=== PATIENT | male | born 1975 | race Caucasian/White ===

== ENCOUNTER 2021-01-01 09:47 | Outpatient (CLI) | payer OTHER, SELFPAY ==
--- NOTE | 2021-01-01 14:30 | DI.RAD_ITS ---
EXAM: XR CHEST 2V PA LATERAL CLINICAL HISTORY: COUGH R05 HX SMOKER [id number]. TECHNIQUE: 2D digital imaging was performed. COMPARISON: No exams were available for comparison FINDINGS: Heart size is normal. The mediastinum is not widened. Lungs are clear. No infiltrates nor pleural effusions. IMPRESSION: No acute pulmonary findings. DATA REPOSITORY: RADIATION DOSE DELIVERED:
== END 2021-01-01 10:07 ==
PROVIDERS: PCP Physician Assistant Medical; Visit Provider Physician Assistant Medical
DX: R05 Cough (principal); Z87.891 Personal history of nicotine dependence
CPT/HCPCS: 71046

== ENCOUNTER 2022-05-27 17:53 | Outpatient (CLI) | payer OTHER, SELFPAY ==
--- NOTE | 2022-05-27 18:00 | DI.RAD_ITS ---
Exam(s) XR CHEST 2V PA LATERAL EXAM: XR CHEST 2V PA LATERAL CLINICAL HISTORY: Rib Pain. TECHNIQUE: 2D digital imaging was performed. COMPARISON: CR XR CHEST 2V PA LATERAL from 01/01/2021 FINDINGS: 2 views: Heart size is normal. The mediastinum is not widened. Lungs are clear. No infiltrates nor pleural effusions. IMPRESSION: No acute pulmonary findings. DATA REPOSITORY: RADIATION DOSE DELIVERED:
--- NOTE | 2022-05-27 18:00 | DI.RAD_ITS ---
Exam(s) XR RIBS BI ONLY EXAM: XR RIBS BI ONLY CLINICAL HISTORY: Rib Pain TECHNIQUE: 2D digital imaging was performed. COMPARISON: CR,XR XR CHEST 2V PA LATERAL from 05/27/2022 FINDINGS: RIBS 3 VIEWS-BILATERAL There are no acute rib fractures evident. No lytic rib lesions identified. No pneumothorax. No lung contusion. IMPRESSION: 1. No rib fractures evident. Also no obvious rib lesions. 2. No abnormal lung findings. DATA REPOSITORY: RADIATION DOSE DELIVERED:
--- NOTE | 2022-05-27 19:31 | DI.VRAD_ITS ---
PROCEDURE INFORMATION: Exam: XR Chest Exam date and time: 05/27/2022 6:43 PM Age: 46 years old Clinical indication: Other: Rib, pain TECHNIQUE: Imaging protocol: Radiologic exam of the chest. Views: 2 views. COMPARISON: CR XR CHEST 2V PA LATERAL 01/01/2021 2:32 PM FINDINGS: Lungs: Unremarkable. No consolidation. Pleural spaces: Unremarkable. No pleural effusion. No pneumothorax. Heart/Mediastinum: Unremarkable. No cardiomegaly. Bones/joints: Unremarkable. IMPRESSION: No evidence for acute abnormality in the chest. Dictated and Authenticated by: Estella Cannon MD. Ordering:CLARISSA Whittington MD
--- NOTE | 2022-05-27 19:34 | DI.VRAD_ITS ---
PROCEDURE INFORMATION: Exam: XR Ribs Exam date and time: 05/27/2022 6:46 PM Age: 46 years old Clinical indication: Other: Rib pain TECHNIQUE: Imaging protocol: Radiologic exam of the of the ribs. Views: 3 views. Bilateral ribs. COMPARISON: CR XR CHEST 2V PA LATERAL 05/27/2022 6:43 PM FINDINGS: Bones/joints: Normal. Soft tissues: Normal. Other findings: There appear to be 2 radiopaque anterior markers present. IMPRESSION: No evidence for fracture or acute abnormality. Dictated and Authenticated by: Estella Cannon MD. Ordering:CLARISSA Whittington MD
== END 2022-05-27 18:13 ==
LOC: LBN 17:58 → DI 17:59
PROVIDERS: PCP Physician Assistant Medical; Visit Provider Physician Assistant Medical
DX: R07.81 Pleurodynia (principal)
CPT/HCPCS: 71046; 71110

== ENCOUNTER 2024-11-07 22:10 | Outpatient (REF) | payer OTHER, SELFPAY ==
[2024-11-07 22:01] LABS: ALT 35 U/L (16-63); AST 27 U/L (15-37); Albumin 4.1 g/dL (3.4-5.0); Alkaline Phosphatase 78 U/L (46-116); Anion Gap 10.2 mmol/L (3-11); BUN 17 mg/dL (7-18); CO2 24.8 mmol/L (21.0-32.0); CREATININE 1.1 mg/dL (0.70-1.30); Calcium 9.8 mg/dL (8.5-10.1); Calculated LDL 116 mg/dL (<100); Chloride 102 mmol/L (98-107); Cholesterol 203 mg/dL (<200); Estimated GFR 82.81 (mL/min/1.73m2); Glucose 101 mg/dL (74-106); HDL Cholesterol 63 mg/dL (40-60); Sodium 137 mmol/L (136-145); Triglyceride 123 mg/dL (<150)
--- OUTSIDE RECORDS SUMMARY | 2024-11-07 22:11 | XMS_ITS | Encounter Summary ---
Author Organization [facility] Address [address] [place] [address] Care Team Providers Care Production Assembler Name Role Phone None, Provider Primary Care Provider Unavailabl e Reason for Visit * Reason Onset Date Comments Billing Question 12/20/2023 Encounter Details Date Type Department Care Team (Late st Contact Info) Description 12/20/2023 Telephone [facility] Pediatric Genetics - [facility] [address] [place], [place] [phone] Carleen Arroyo, MS [address] [place], [place] [phone] Billing Question Social History Tobacco Use Types Packs/Day Years Used Date Smoking Tobacco: Never Assessed Sex and Gender Information Value Date Recorded Sex Assigned at Not on file Legal Sex Male 13:05 EDT Gender Identity Not on file Sexual Orientation Not on file documented as of this encounter Miscellaneous Notes * Telephone Encounter - Chivo Adler - 12/20/2023 0829 EDT Calling with concerns regarding billing of the visit on 11.14.2023, they weren't expecting to be billed for $648.00. He would like a call back to discuss. I called and left a VM for them to call the billing office to review, and I would have you follow up with them when you return from vacation. CG documented in this encounter Plan of Treatment Not on file documented as of this encounter Visit Diagnoses Not on filedocumented in this encounter Care Teams Production Assembler Relationship Specialty Start Date End Date None, Provider PCP - General 11/14/23 documented as of this encounter
--- OUTSIDE RECORDS SUMMARY | 2024-11-07 22:11 | XMS_ITS | Encounter Summary ---
Author Organization [facility] Address [address] [place] [address] Care Team Providers Care Special Effects Artist Name Role Phone Unknown, Provider Primary Care Provider Unava ilable Reason for Visit * Reason Onset Date Comments Appointment Related 06/13/2015 Encounter Details Date Type Department Care Team (Late st Contact Info) Description 06/13/[address] [phone] Physical, Therapy Appointment Related Social History Tobacco Use Types Packs/Day Years Used Date Smoking Tobacco: Never Assessed Sex and Gender Information Value Date Recorded Sex Assigned at Not on file Legal Sex Male 13:05 EDT Gender Identity Not on file Sexual Orientation Not on file documented as of this encounter Miscellaneous Notes * Telephone Encounter - Nicole Beltran - 06/13/[address] [address] Telephone Intake Information for Scheduling NEW Patients for Therapy Script/referral: NONE NEEDED Date Scheduled: 06/13/15 Referring Provider: NONE NEEDED Diagnosis: BACK PAIN Primary Insurance: MEDICAID Visit limit: 30 PER YEAR - PT/OT/SPEECH COMBINED If Medicaid: Have you been seen in therapy since October first of this year? No Notes/other: NEW TO [facility] Nicole Beltran 06/13/2015 Label: Isma Ortiz : 1975 documented in this encounter Plan of Treatment Not on file documented as of this encounter Visit Diagnoses Not on filedocumented in this encounter Care Teams Special Effects Artist Relationship Specialty Start Date End Date Unknown, Provider, PCP - General 06/12/15 11/13/23 documented as of this encounter
--- OUTSIDE RECORDS SUMMARY | 2024-11-07 22:11 | XMS_ITS | Encounter Summary ---
Author Organization [facility] Address [address] [place] [address] Care Team Providers Care Roller Inspector And Mender Name Role Phone None, Provider Primary Care Provider Unavailabl e Reason for Visit * Reason Onset Date Comments Follow-up 12/15/2023 Encounter Details Date Type Department Care Team (Late st Contact Info) Description 12/15/2023 Telephone [facility] Pediatric Genetics - Main [place] [address] [place], [place] [phone] Carleen Arroyo MS [address] [place], [place] [phone] Follow-up Social History Tobacco Use Types Packs/Day Years Used Date Smoking Tobacco: Never Assessed Sex and Gender Information Value Date Recorded Sex Assigned at Not on file Legal Sex Male 13:05 EDT Gender Identity Not on file Sexual Orientation Not on file documented as of this encounter Miscellaneous Notes * Telephone Encounter - Carleen Arroyo MS - 12/15/2023 0818 EDT I left a message for Isma that his T genetic testing was denied by his insurance. There is the option of doing a patient pay $250 genetic testing through [employer] if he is interested. We also do need the genetic testing consent to proceed. documented in this encounter Plan of Treatment Not on file documented as of this encounter Visit Diagnoses Not on filedocumented in this encounter Care Teams Roller Inspector And Mender Relationship Specialty Start Date End Date None, Provider PCP - General 11/14/23 documented as of this encounter
--- OUTSIDE RECORDS SUMMARY | 2024-11-07 22:11 | XMS_ITS | Encounter Summary ---
Author Organization [facility] Address [address] [place] [address] Care Team Providers Care Ep Technologist Name Role Phone None, Provider Primary Care Provider Unavailabl e Reason for Visit * Reason Onset Date Comments Follow-up 12/28/2023 Encounter Details Date Type Department Care Team (Late st Contact Info) Description 12/28/2023 Telephone [facility] Pediatric Genetics - Main [place] [address] [place], [place] [phone] Carleen Arroyo MS [address] [place] [address] Follow-up Social History Tobacco Use Types Packs/Day Years Used Date Smoking Tobacco: Never Assessed Sex and Gender Information Value Date Recorded Sex Assigned at Not on file Legal Sex Male 13:05 EDT Gender Identity Not on file Sexual Orientation Not on file documented as of this encounter Miscellaneous Notes * Telephone Encounter - Carleen Arroyo MS - 12/28/2023 7907 EDT I spoke with Isma regarding the bill he received from the genetic counseling appointment. I encouraged him to reach out to the [facility] billing department to discuss it further and or his insurance company. He was not sure if he was going to proceed with the patient pay option of $250 for the genetic testing he will let me know. I have sent him a genetic testing consent again in the mail. documented in this encounter Plan of Treatment Not on file documented as of this encounter Visit Diagnoses Not on filedocumented in this encounter Care Teams Ep Technologist Relationship Specialty Start Date End Date None, Provider PCP - General 11/14/23 documented as of this encounter
--- OUTSIDE RECORDS SUMMARY | 2024-11-07 22:11 | XMS_ITS | Encounter Summary ---
Author Organization [facility] Address [address] [place] [address] Care Team Providers Care Net Repairer Name Role Phone None, Provider Primary Care Provider Unavailabl e Reason for Visit * Reason Onset Date Comments Results 05/28/2024 Encounter Details Date Type Department Care Team (Late st Contact Info) Description 05/28/2024 Telephone [facility] Pediatric Genetics - [facility] [address] [place], [place] [phone] Carleen Arroyo MS [address] [place] [address] Results Social History Tobacco Use Types Packs/Day Years Used Date Smoking Tobacco: Never Assessed Sex and Gender Information Value Date Recorded Sex Assigned at Not on file Legal Sex Male 13:05 EDT Gender Identity Not on file Sexual Orientation Not on file documented as of this encounter Miscellaneous Notes * Telephone Encounter - Carleen Arroyo MS - 05/28/2024 1442 EDT I spoke to Isma's partner Katarzyna who was concerned as her son had recently started to have nosebleeds. I explained that the patient pay option of $250 through [employer] was no longer offered but I would call a different lab to see whether patient pay option is and get back to her [phone] Katarzyna documented in this encounter Plan of Treatment Not on file documented as of this encounter Visit Diagnoses Not on filedocumented in this encounter Care Teams Net Repairer Relationship Specialty Start Date End Date None, Provider PCP - General 11/14/23 documented as of this encounter
--- OUTSIDE RECORDS SUMMARY | 2024-11-07 22:11 | XMS_ITS | Encounter Summary ---
Author Organization [facility] Address [address] [place] [address] Care Team Providers Care Uc Architect Name Role Phone None, Provider Primary Care Provider Unavailabl e Reason for Referral * Prior Authorization (Routine/Next Available) - Closed Specialty Diagnoses / Procedures Referred By Joaquin yi Referred To Contact Diagnoses Cerebral hemorrhage, nontraumatic ([facility]) Procedures CHG MOLECULAR PATHOLOGY PROCEDURE LEVEL 6 CHG UNLISTED MOLECULAR PATHOLOGY PROCEDURE Arianna Vargas MD Phone: tel: fax: [facility] Pediatric Genetics - [facility] [address] [place] [address] Phone: tel: fax: Referral ID Status Reason Start Date Expiration Date V isits Requested Visits Authorized [id number] Closed Specialty Services Required 11/14/2023 1 1 Question Answer Reason for Request: HHT panel Comments The purpose of this request is to inform precertification staff that the requested service needs to be reviewed for prior-authorization. HHT panel [facility] [id number] Reason for Visit * Reason Comments New Patient Visit * Consult (Routine) - Authorization Not Required Specialty Diagnoses / Procedures Referred By Joaquin yi Referred To Contact Pediatric Genetics Diagnoses AVM (arteriovenous malformation) HHT (hereditary hemorrhagic telangiectasia) ([facility]) Carleen Arroyo, MS [address] [place] [address] Phone: tel: fax: [facility] Clinical Genetics - [place] [address] Phone: tel: fax: Referral ID Status Reason Start Date Expiration Date Visits Requested Visits Authorized [id number] Authorization Not Required 1 1 Encounter Details Date Type Department Care Team (Late st Contact Info) Description 11/14/2023 8:00 EST Telemedicine [facility] Clinical Genetics - [address] [phone] Carleen Arroyo, MS [address] [place], [place] [phone] Cerebral hemorrhage, nontraumatic (HCC-CMS) (Primary Dx); Encounter for nonprocreative genetic counseling and testing Social History Tobacco Use Types Packs/Day Years Used Date Smoking Tobacco: Never Assessed Sex and Gender Information Value Date Recorded Sex Assigned at Not on file Legal Sex Male 13:05 EDT Gender Identity Not on file Sexual Orientation Not on file documented as of this encounter Progress Notes * Carleen Arroyo MS - 11/14/2023 0800 EST [facility] CLINICAL GENETICS PROGRAM TELEMEDICINE VIDEO VISIT ENCOUNTER Encounter Date: 11/14/2023 Name: Isma Ortiz : 1975 PCP: Provider None Isma Ortiz is a 47 y.o. male who is seen for a Genetics Telemedicine Video Visit Encounter for genetic counseling and discussion of genetic testing for Hereditary Hemorrhagic Telangiectasia TELEMEDICINE VIDEO VISIT DOCUMENTATION Today's visit was provided through telemedicine video conferencing: I have reviewed the appropriateness of using video technology with the patient with regards to today's visit. The location of the patient : Home Patient Visit Location State: [place] The location of the provider: Office Provider Visit Location State: [place] The following people and their roles were present for today's visit: None Appointment Provider: Carleen Arroyo MS The concept of ???Telemedicine?? has been described to the patient or guardian.? Patient/guardian has been informed of the anticipated benefits and possible risks.? Patient/guardian understands the information provided regarding telemedicine, has had the opportunity to ask questions about this information, and all questions have been answered to patient???s satisfaction. Patient/guardian consents for the use of telemedicine in his/her medical care and authorizes the transmission of any relevant medical information to providers and their staff involved in patient???s medical or mental health care. FAMILY HISTORY: A detailed three-generation pedigree was obtained as part of this visit. Isma has a healthy 2-1/2-year-old son Blaise. He has a healthy sister and 2 healthy nephews. His mother is alive and well and has 9 healthy siblings. Her mother had a cerebral hemorrhage in her 70s. His father is alive and well as are his siblings. He is of [place] ethnicity. There is noknown consanguinity in the family. The rest of the family history is unremarkable. MEDICAL HISTORY: Isma had a cerebral hemorrhage when he was 8 years of age. It was possibly a arteriovenous malformations (AVM). He does not have a history of recurrent nosebleeds or telangiectasias. He is otherwisehealthy. SUMMARY OF DISCUSSION: Isma Ortiz is a 47 y.o. male with a history of a cerebral hemorrhage and possibly an AVM. We briefly reviewed that Hereditary hemorrhagic telangiectasia (HHT) is a disorder that results in the development of multiple abnormalities in the blood vessels. In hereditary hemorrhagic telangiectasia, some arterial vessels flow directly into veins rather than into the capillaries. These abnormalities are called arteriovenous malformations. When they occur in vessels near the surface of the skin, where they are visible as red markings, they are known as telangiectases (the singular is telangiectasia). In the circulatory system, blood carrying oxygen from the lungs is normally pumped by the heart into the arteries at high pressure. The pressure allows the blood to make its way through the arteries to the smaller vessels (arterioles and capillaries) that supply oxygen to the body's tissues. By thetime blood reaches the capillaries, the pressure is much lower. The blood then proceeds from the capillaries into veins, through which it eventually returns to the heart. Without the normal buffer of the capillaries, the blood moves from the arteries at high pressure into the thinner walled, less elastic veins. The extra pressure tends to strain and enlarge these blood vessels, and may result in compression or irritation of adjacent tissues and frequent episodes of severe bleeding (hemorrhage). Nosebleeds are very common in people with hereditary hemorrhagic telangiectasia, and more serious problems may arise from hemorrhages in the brain, liver, lungs, or otherorgans. There are several forms of hereditary hemorrhagic telangiectasia, distinguished mainly by their genetic cause but with some differences in patterns of signs and symptoms. People with type 1 tend to develop symptoms earlier than those with type 2, and are more likely to have blood vessel malformations in the lungs and brain. Type 2 and type 3 may be associated with a higher risk of liver involvement. Women are more likely than men to develop blood vessel malformations in the lungs with type 1, and are also at higher risk of liver involvement with both type 1 and type 2. Individuals with any form of hereditary hemorrhagic telangiectasia, however, can have any of these problems. As Isma was aware HHT is inherited in an autosomal dominant pattern. Each child of an individual with this condition has a 50% chance of having the condition as well. We discussed the availability of the [facility] Hereditary Hemorrhagic Telangiectasia (HHT) panel. Isma was interested in this genetic testing we have placed a prior authorization with his insurance company. If it is approved we will send him an informed consent to review, sign, and return. He would be sent a buccal kit. We would contact him with results. Isma was also going to look into his medical history to see if he can gather any additional information to share. Lastly, we discussed that the laboratory may use their de-identified information for research or education purposes. The lab may also share this de-identified information with health care providers, scientists and healthcare databases. We also reviewed DUST[place], the Genetic Information Nondiscrimination Act, which protects individuals from being discriminated based on their genetic testing information in regards to health insurance and employment. We also discussed other implications of genetic testing, including insurance implications. A law in [place] prohibits life insurers from requesting that an individual have genetic testing prior to applying for a life insurance policy. If one applies fo r a life insurance policy and genetic testing has already been performed, however, the life insureris entitled to know the test results. With regard to health insurance, a law in [place] prohibits health insurers from dropping an individual because of the results of a genetic test. However, the insurer may charge higher premiums PLAN: -Prior authorization placed for [facility] hereditary Hemorrhagic Telangiectasia I spent a total of 60 minutes on the date of this encounter as indicated in the above progress note. The patient was seen under the supervision of Dr. Arianna Vargas, who reviewed the case and was available for further consultation or questions at the time of the visit. Carleen Arroyo MS, [facility] Genetic Counselor Arianna Vargas MD ([facility]) Medical Genetics 11/16/2023 22:14 documented in this encounter Plan of Treatment Scheduled Referrals Name Type Priority Associated Diagnoses Order Schedule AMB CONS/FOLLOW UP GENETIC TESTING PRIOR AUTHORIZATION REQUEST Outpatient Referral Routine/Next Available Cerebral hemorrhage, nontraumatic (HCC-CMS) Expected: 11/21/2023 (Approximate), Expires: 11/14/2024 documented as of this encounter Visit Diagnoses Diagnosis Cerebral hemorrhage, nontraumatic (HCC-CMS)- Primary Intracerebral hemorrhage Encounter for nonprocreative genetic counseling and testing documented in this encounter Care Teams Uc Architect Relationship Specialty Start Date End Date None, Provider PCP - General 11/14/23 documented as of this encounter
--- OUTSIDE RECORDS SUMMARY | 2024-11-07 22:11 | XMS_ITS | Encounter Summary ---
Author Organization [facility] Address [address] [place] [address] Care Team Providers Care Extended Insurance Clerk Name Role Phone Unknown, Provider Primary Care Provider Unava ilable None, Provider Primary Care Provider Unavailabl e Reason for Visit * Reason Onset Date Comments Appointment Related 07/28/2023 Encounter Details Date Type Department Care Team (Late st Contact Info) Description 07/28/2023 Telephone [facility] Pediatric Genetics - [address] [address] Arianna Vargas MD [address] [place] [phone] Appointment Related Social History Tobacco Use Types Packs/Day Years Used Date Smoking Tobacco: Never Assessed Sex and Gender Information Value Date Recorded Sex Assigned at Not on file Legal Sex Male 13:05 EDT Gender Identity Not on file Sexual Orientation Not on file documented as of this encounter Miscellaneous Notes * Telephone Encounter - Chivo Adler - 07/28/2023 1025 EDT Called and left for him to call me back to schedule an appointment for his regarding testing forHHT. His son was scheduled for this on 08.11, Blaise and we need to cancel that. I have reviewed this with his mother and she understood. She explained that Isma the father is without insurance at this time and may want to wait till next year. documented in this encounter Plan of Treatment Not on file documented as of this encounter Visit Diagnoses Not on filedocumented in this encounter Care Teams Extended Insurance Clerk Relationship Specialty Start Date End Date Unknown, Provider, PCP - General 06/12/15 11/13/23 None, Provider PCP - General 11/14/23 documented as of this encounter
--- OUTSIDE RECORDS SUMMARY | 2024-11-07 22:11 | XMS_ITS | Encounter Summary ---
Author Organization [facility] Address [address] [place] [address] Care Team Providers Care Slitting And Shipping Supervisor Name Role Phone None, Provider Primary Care Provider Unavailabl e Reason for Visit * Reason Onset Date Comments Follow-up 05/28/2024 Encounter Details Date Type Department Care Team (Late st Contact Info) Description 05/28/2024 Telephone [facility] Pediatric Genetics - Main [place] [address] [place], [place] [phone] Carleen Arroyo MS [address] [place] [address] Follow-up Social History Tobacco Use Types Packs/Day Years Used Date Smoking Tobacco: Never Assessed Sex and Gender Information Value Date Recorded Sex Assigned at Not on file Legal Sex Male 13:05 EDT Gender Identity Not on file Sexual Orientation Not on file documented as of this encounter Miscellaneous Notes * Telephone Encounter - Carleen Arroyo MS - 05/28/2024 3607 EDT I left a message for Isma's that they could either pay 500 there is for Isma to have the genetic testing for we can see her son as he is now having nosebleeds and Medicaid would cover the costof testing. documented in this encounter Plan of Treatment Not on file documented as of this encounter Visit Diagnoses Not on filedocumented in this encounter Care Teams Slitting And Shipping Supervisor Relationship Specialty Start Date End Date None, Provider PCP - General 11/14/23 documented as of this encounter
--- OUTSIDE RECORDS SUMMARY | 2024-11-07 22:11 | XMS_ITS | Referral Summary ---
Author Organization [facility] Address [address] [place] [id number] Care Team Providers Care Cookie Padder Name Role Phone None, Provider Primary Care Provider Unavailabl e Social History Tobacco Use Types Packs/Day Years Used Date Smoking Tobacco: Never Assessed Sex and Gender Information Value Date Recorded Sex Assigned at Not on file Legal Sex Male 13:05 EDT Gender Identity Not on file Sexual Orientation Not on file Plan of Treatment Not on file Insurance [facility] Care Teams Cookie Padder Relationship Specialty Start Date End Date None, Provider PCP - General 11/14/23
--- OUTSIDE RECORDS SUMMARY | 2024-11-07 22:11 | XMS_ITS | Encounter Summary ---
Author Organization [facility] Address [address] [place] [address] Care Team Providers Care President Practicing Urologist Name Role Phone Unknown, Provider Primary Care Provider Unava ilable Reason for Visit * Reason Onset Date Comments Appointment Related 06/19/2015 Encounter Details Date Type Department Care Team (Late st Contact Info) Description 06/19/[address] [address] Mary Thomason, PT [address] [facility] [address] [place] [address] Appointment Related Social History Tobacco Use Types Packs/Day Years Used Date Smoking Tobacco: Never Assessed Sex and Gender Information Value Date Recorded Sex Assigned at Not on file Legal Sex Male 13:05 EDT Gender Identity Not on file Sexual Orientation Not on file documented as of this encounter Miscellaneous Notes * Telephone Encounter - Mary Thomason, PT - 06/19/2015 1030 EDT REHABILITATION THERAP[facility] - [address] [address] Physical Therapy Contact Note Patient phoned to cancel his Tuesday appointment at 8:00. He has other medical appointments, he is house sitting in [place] and he just cannot make it in. He would like to reschedule. He will call us back. MARY THOMASON, VERO 06/19/2015 10:30 documented in this encounter Plan of Treatment Not on file documented as of this encounter Visit Diagnoses Not on filedocumented in this encounter Care Teams President Practicing Urologist Relationship Specialty Start Date End Date Unknown, Provider, PCP - General 06/12/15 11/13/23 documented as of this encounter
--- OUTSIDE RECORDS SUMMARY | 2024-11-07 22:11 | XMS_ITS | Encounter Summary ---
Author Organization [facility] Address [address] [place] [address] Care Team Providers Care Getterer Name Role Phone None, Provider Primary Care Provider Unavailabl e Reason for Visit * Reason Onset Date Comments Follow-up 12/26/2023 Encounter Details Date Type Department Care Team (Late st Contact Info) Description 12/26/2023 Telephone [facility] Pediatric Genetics - [facility] [address] [place], [place] [id number] Carleen Arroyo MS [address] [place] [address] Follow-up Social History Tobacco Use Types Packs/Day Years Used Date Smoking Tobacco: Never Assessed Sex and Gender Information Value Date Recorded Sex Assigned at Not on file Legal Sex Male 13:05 EDT Gender Identity Not on file Sexual Orientation Not on file documented as of this encounter Miscellaneous Notes * Telephone Encounter - Carleen Arroyo MS - 12/26/2023 0940 EDT I left a message for Isma following up on the call he had placed to our office regarding a charge for the visit. I alsoleft a message following up on whether he wanted to proceed with doing the patient pay option of $250 as insurance had denied the genetic testing request. documented in this encounter Plan of Treatment Not on file documented as of this encounter Visit Diagnoses Not on filedocumented in this encounter Care Teams Getterer Relationship Specialty Start Date End Date None, Provider PCP - General 11/14/23 documented as of this encounter
--- OUTSIDE RECORDS SUMMARY | 2024-11-07 22:11 | XMS_ITS | Clinical Summary ---
Author Organization [facility] Address [address] [place] [address] Care Team Providers Care Strike Out Machine Operator Name Role Phone None, Provider Primary Care Provider Unavailabl e Family History Medical History Relation Comments Cerebral aneurysm Maternal Grandmother Relation Status Comments Maternal Grandfather Maternal Grandmother Nephew 1 Alive Nephew 2 Alive Other 1 Alive Other 2 Alive x9 Sister Alive Son Alive Social History Tobacco Use Types Packs/Day Years Used Date Smoking Tobacco: Never Assessed Sex and Gender Information Value Date Recorded Sex Assigned at Not on file Legal Sex Male 13:05 EDT Gender Identity Not on file Sexual Orientation Not on file Obstetrics History Plan of Treatment Health Maintenance Due Date Last Done Comments Hepatitis C Screen 1975 Hepatitis B Vaccine (1 of 3 - 19+ 3-dose series) 12/29 COVID-19 Vaccine ( season) 2024 Insurance [facility] Care Teams Strike Out Machine Operator Relationship Specialty Start Date End Date None, Provider PCP - General 11/14/23
--- OUTSIDE RECORDS SUMMARY | 2024-11-07 22:11 | XMS_ITS | Encounter Summary ---
Author Organization [facility] Address [address] [place] [address] Care Team Providers Care Instructional Consultant Name Role Phone Unknown, Provider Primary Care Provider Unava ilable Reason for Visit * Reason Onset Date Comments Appointment Related 11/11/2023 Encounter Details Date Type Department Care Team (Late st Contact Info) Description 11/11/2023 Telephone [facility] Pediatric Genetics - [facility] [address] [place], [place] [id number] Carleen Arroyo [place] [address] [place], [place] [id number] Appointment Related Social History Tobacco Use Types Packs/Day Years Used Date Smoking Tobacco: Never Assessed Sex and Gender Information Value Date Recorded Sex Assigned at Not on file Legal Sex Male 13:05 EDT Gender Identity Not on file Sexual Orientation Not on file documented as of this encounter Miscellaneous Notes * Telephone Encounter - Carleen Arroyo MS - 11/11/2023 1515 EST I left a message for Isma that he needs to call [facility] preregistration to up flowed his insurance information before our appointment Tuesday morning at 8 AM 11/14/2023. documented in this encounter Plan of Treatment Not on file documented as of this encounter Visit Diagnoses Not on filedocumented in this encounter Care Teams Instructional Consultant Relationship Specialty Start Date End Date Unknown, Provider, PCP - General 06/12/15 11/13/23 documented as of this encounter
[2024-11-08 23:15] LABS: PSA, Screening 0.9 ng/mL (<=2.5)
== END 2024-11-07 22:11 | disposition home or self-care (01) ==
LOC: NCHCN 22:10
PROVIDERS: PCP Physician Assistant Medical; Visit Provider Family Medicine
DX: Z13.220 Encounter for screening for lipoid disorders (principal); Z12.5 Encounter for screening for malignant neoplasm of prostate; F10.10 Alcohol abuse, uncomplicated
CPT/HCPCS: 80053; 80061; 84153